=== PATIENT | male | born 1990 | race Two or more races ===

== ENCOUNTER 2024-07-16 12:10 | Emergency (ER) | payer OTHER ==
[~2024-07-16] VITALS: Ht 180.3 cm; Wt 108.8 kg
[2024-07-16 12:26] VITALS: BP 149/84; PULSE 89; RESP 18; TEMP 97.1; O2SAT 97
--- NOTE | 2024-07-16 12:32 | ED.PDOC ---
History of Present Illness Chief Complaint: Eye Problem Time Seen by MD: 12:30 Reviewed Notes: Medications, Allergies Allergies: Coded Allergies: NO KNOWN ALLERGIES (Unverified , 07/16/24) Information Source: Patient Mode of Arrival: Ambulatory Severity: Moderate Timing: Days Duration: Since onset Prehospital treatment: None Past Medical History PAST MEDICAL HISTORY: Denies Surgical History: Denies all surgeries Family History Family History: Reviewed,noncontributory to illness Social History Smoker: Non-Smoker Alcohol: Denies ETOH Use Drugs: Denies Drug Use Lives In: Home Constitutional: denies: chills, diaphoresis, fatigue, fever, malaise, sweats, weakness, others EENTM: reports: eye pain, eye redness; denies: blurred vision, double vision, ear bleeding, ear discharge, ear drainage, ear pain, ear ringing, hearing loss, mouth pain, mouth swelling, nasal discharge, nose bleeding, nose congestion, nose pain, photophobia, tearing, throat pain, throat swelling, voice changes, others Respiratory: denies: cough, hemoptysis, orthopnea, SOB at rest, shortness of breath, SOB with excertion, stridor, wheezing, others Cardiovascular: denies: chest pain, dizzy spells, diaphoresis, Dyspnea on exertion, edema, irregular heart beat, left arm pain, lightheadedness, palpitations, PND, syncope, others Gastrointestinal: denies: abdomen distended, abdominal pain, blood streaked bowels, constipated, diarrhea, dysphagia, difficulty swallowing, hematemesis, melena, nausea, poor appetite, poor fluid intake, rectal bleeding, rectal pain, vomiting, others Genitourinary: denies: burning, dysuria, flank pain, frequency, hematuria, incontinence, penile discharge, penile sore, pain, testicle pain, testicle swelling, urgency, others Neurological: denies: dizziness, fainting, headache, left sided numbness, left sided weakness, numbness, paresthesia, pre-existing deficit, right sided numbness, right sided weakness, seizure, speech problems, tingling, tremors, weakness, others Musculoskeletal: denies: back pain, gout, joint pain, joint swelling, muscle pain, muscle stiffness, neck pain, others Integumetry: denies: bruises, change in color, change in hair/nails, dryness, laceration, lesions, lumps, rash, wounds, others Allergic/Immunocompromised: denies: Difficulty Healing, Frequent Infections, Hives, Itching, others Hematologic/Lymphatic: denies: anemia, blood clots, easy bleeding, easy bruising, swollen glands, others Endocrine: denies: excessive hunger, excessive sweating, excessive thirst, excessive urination, flushing, intolerance to cold, intolerance to heat, unexplained weight gain, unexplained weight loss, others Psychiatric: denies: anxiety, bipolar disorder, depression, hopeless, panic disorder, schizophrenia, sleepless, suicidal, others All Other Systems: Reviewed and Negative Was a procedure done? Was a procedure done?: No X-Ray, Labs, Meds, VS Vital Signs Date Time Temp Pulse Resp B/P (MAP) Pulse Ox O2 Delivery O2 Flow Rate FiO2 07/16/24 12:26 97.1 89 18 149/84 (105) 97 97.1 Time of 1ST Reevaluation: 12:31 Reevaluation 1ST: LEFT AMA Patient Education/Counseling: Diagnosis, Treatment, Prognosis Family Education/Counseling: No Family Present Departure 1 Departure Disposition: 07 LEFT AGAINST MEDICAL ADVICE Discharged With: Self Critical Care Note Critical Care Time?: No Stability Stability form required: No Heart Score Heart Score: Heart Score Response (Comments) Value History N/A 0 EKG N/A 0 Age N/A 0 Risk Factors N/A 0 Troponin N/A 0 Total 0 I personally scribed for CACHORRO SORTO MD ([email or web address]) on 07/16/24 at 12:32. Electronically submitted by Gian Patel ([email or web address]). I personally scribed for CACHORRO SORTO MD ([email or web address]) on 07/16/24 at 12:51. Electronically submitted by Gian Patel ([email or web address]). CACHORRO SORTO MD Jul 16, 2024 12:32
--- NOTE | 2024-07-16 12:40 | ED.PDOC ---
Eye-HPI HPI Comments 34-year-old male brought in by spouse for evaluation of left eye discomfort, redness, blurred vision and increased tearing since yesterday. Patient states he underwent pterygium excision with graft application on his left eye 4 days ago at an outpatient ophthalmologic surgical center in [place]. He is currently on antibiotic eyedrops and other medications topically. He denies any fever or other symptoms. Chief Complaint: Eye Problem Time Seen by MD: 12:28 Reviewed Notes: Medications, Allergies Allergies: Coded Allergies: NO KNOWN ALLERGIES (Unverified , 07/16/24) Information Source: Patient Mode of Arrival: Ambulatory Timing: Hours Duration: Since onset Prehospital treatment: None Quality: Pain, Red Eye Location: Left Lids: Normal Conjunctiva: Subconjunctival hemorrhag Cornea: Normal Pupils: Normal EOM: Normal Fundus: Normal Slit lamp exam: Normal Anterior chamber: Normal Mouth: Normal ENT Ear Exam: Normal Nose: Normal Sinuses: Normal Oropharynx: Normal Past Medical History Past Medical History (Other): Left eye pterygium Surgical History (Other): Left eye pterygium excision status post graft Family History Family History: Reviewed,noncontributory to illness Social History Smoker: Non-Smoker Alcohol: Denies ETOH Use Drugs: Denies Drug Use Lives In: Home Constitutional: denies: chills, diaphoresis, fatigue, fever, malaise, sweats, weakness, others EENTM: reports: eye pain, eye redness; denies: blurred vision, double vision, ear bleeding, ear discharge, ear drainage, ear pain, ear ringing, hearing loss, mouth pain, mouth swelling, nasal discharge, nose bleeding, nose congestion, nose pain, photophobia, tearing, throat pain, throat swelling, voice changes, others Respiratory: denies: cough, hemoptysis, orthopnea, SOB at rest, shortness of breath, SOB with excertion, stridor, wheezing, others Cardiovascular: denies: chest pain, dizzy spells, diaphoresis, Dyspnea on exer tion, edema, irregular heart beat, left arm pain, lightheadedness, palpitations, PND, syncope, others Gastrointestinal: denies: abdomen distended, abdominal pain, blood streaked bowels, constipated, diarrhea, dysphagia, difficulty swallowing, hematemesis, melena, nausea, poor appetite, poor fluid intake, rectal bleeding, rectal pain, vomiting, others Genitourinary: denies: burning, dysuria, flank pain, frequency, hematuria, incontinence, penile discharge, penile sore, pain, testicle pain, testicle swelling, urgency, others Neurological: denies: dizziness, fainting, headache, left sided numbness, left sided weakness, numbness, paresthesia, pre-existing deficit, right sided numbness, right sided weakness, seizure, speech problems, tingling, tremors, weakness, others Musculoskeletal: denies: back pain, gout, joint pain, joint swelling, muscle pain, muscle stiffness, neck pain, others Integumetry: denies: bruises, change in color, change in hair/nails, dryness, laceration, lesions, lumps, rash, wounds, others Allergic/Immunocompromised: denies: Difficulty Healing, Frequent Infections, Hives, Itching, others Hematologic/Lymphatic: denies: anemia, blood clots, easy bleeding, easy bruising, swollen glands, others Endocrine: denies: excessive hunger, excessive sweating, excessive thirst, excessive urination, flushing, intolerance to cold, intolerance to heat, unexplained weight gain, unexplained weight loss, others Psychiatric: denies: anxiety, bipolar disorder, depression, hopeless, panic disorder, schizophrenia, sleepless, suicidal, others All Other Systems: Reviewed and Negative (Comprehensive systems review obtained and negative except for what is stated in the HPI.) Physical Exam General Appearance: No Apparent Distress, Obese HEENT: PERRL/EOMI, Other (Left eye subconjunctival hematoma overlying the medial aspect of the pupil, iris and sclera. Moderate tearing. Mild diffuse conjunctival injection) Neck: Full Range of Motion, Normal Inspection Respiratory: Lungs Clear, No Accessory Muscle Use, No Respiratory Distress, Normal Breath Sounds Cardiovascular: No Edema, No JVD, Regular Rate/Rhythm Breast Exam: Deferred Gastrointestinal: Non Tender, Soft Genitalia: Deferred Pelvic: Deferred Rectal: Deferred Extremities: Normal inspection, Normal range of motion, Non-tender, No pedal edema Neurologic: Alert (Oriented x4), Normal Affect, Normal Mood, Other (Ambulatory. No gross focal deficit.) Cerebellar Function: NOT DONE Reflexes: NOT DONE Skin: Dry, Normal Color, Warm Lymphatic: NOT DONE Was a procedure done? Was a procedure done?: No EENT DIFF Eye: Conjunctivitis, Foreign Body-Conjunctiva, Foreign Body-Corneal, Iritis/Uveitis, Orbital Cellulits, Subconjunctival Hemorrhag Other Differential Diagnosis Graft failure, among others X-Ray, Labs, Meds, VS Vital Signs Date Time Temp Pulse Resp B/P (MAP) Pulse Ox O2 Delivery O2 Flow Rate FiO2 07/16/24 12:26 97.1 89 18 149/84 (105) 97 97.1 X-Ray, Labs, Meds, VS Comment 34-year-old male complaining left eye redness, discomfort and increased tearing status post pterygium excision and graft application Vitals unremarkable Exam remarkable for left eye subconjunctival hematoma overlying the medial aspect of the pupil, iris and sclera. Moderate tearing. Mild diffuse conjunctival injection Advised the patient that we would be attempting to transfer him for higher level of care, as we do not have ophthalmology services at this facility. He stated he did not want to stay and wait for transfer. He was advised he requires re- evaluation by an clutch mechanic, and was advised of the risks of leaving including loss of vision, permanent disability or . He expressed understanding and stated he would prefer to have his drive him to another hospital that has ophthalmology services. He was alert, oriented x4 and capable of making informed decisions at the time he signed out against medical advice. Time of 1ST Reevaluation: 12:30 Reevaluation 1ST: Unchanged Patient Education/Counseling: Diagnosis, Need For Follow Up Family Education/Counseling: No Family Present Departure 1 Departure Time of Disposition: 12:30 Impression: Primary Impression: Subconjunctival hemorrhage of left eye Disposition: 07 LEFT AGAINST MEDICAL ADVICE Condition: Fair Discharged With: Spouse Critical Care Note Critical Care Time?: No Stability Stability form required: No Heart Score Heart Score: Heart Score Response (Comments) Value History N/A 0 EKG N/A 0 Age N/A 0 Risk Factors N/A 0 Troponin N/A 0 Total 0 I personally scribed for CACHORRO SORTO MD ([email or web address]) on 07/16/24 at 12:52. Electronically submitted by Gian Patel ([email or web address]). CACHORRO SORTO MD Jul 16, 2024 12:40
== END 2024-07-16 12:32 | disposition left against medical advice (07) ==
LOC: ER 12:10
DX: H11.32 Conjunctival hemorrhage, left eye (principal); Z98.890 Other specified postprocedural states